=== PATIENT | female | born 1990 | race African-American/Black ===

== ENCOUNTER 2017-01-17 15:09 | Emergency (ER) ==
[2017-01-17 17:46] VITALS: BP 115/73
[2017-01-17] MEDS ORDERED: TORADOL IM ONE (18:17)
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
--- NOTE | 2017-01-17 19:51 | Diag Imaging Result Document ---
PROCEDURE NAME: FACIAL BONES - 01/17/2017 FACIAL BONES, 3 VIEWS: There is an air fluid level within the right maxillary sinus. No fracture or dislocation is seen. IMPRESSION: Air fluid level in the right maxillary sinus, but no fracture identified. If clinical suspicion persists, then a facial CT is recommended.
== END 2017-01-17 20:09 | disposition home or self-care (01) ==
LOC: P.ED 15:09
DX: S00.211A Abrasion of right eyelid and periocular area, initial encounter (principal); H57.11 Ocular pain, right eye; R22.0 Localized swelling, mass and lump, head; R51 Headache; Y08.89XA Assault by other specified means, initial encounter
CPT/HCPCS: 70150; 96372; J1885